=== PATIENT | female | born 1970 | race Two or more races ===

== ENCOUNTER 2018-08-27 06:00 | Day surgery (SDC) | payer OTHER ==
[~2018-08-27] VITALS: Ht 165.1 cm; Wt 86.2 kg
[2018-08-28] MEDS ORDERED: ULTRAM50 MG PO (09:17)
[2018-08-28] MEDS ORDERED: COLACE100 MG PO (09:17)
== END 2018-08-28 08:00 | disposition home or self-care (01) ==
LOC: CIR.AMB 06:00 → SURH 11:45 → EDSTATUS 11:45 → CIR.AMB 11:45 → OB/GYN 13:46 → O/R 13:46 → CIR.AMB 08-28 08:00 → O/R 08-28 15:00 → OB/GYN 08-28 15:00
DX: D25.1 Intramural leiomyoma of uterus (principal); D25.2 Subserosal leiomyoma of uterus; N93.8 Other specified abnormal uterine and vaginal bleeding; K66.0 Peritoneal adhesions (postprocedural) (postinfection)